=== PATIENT | female | born 1990 | race American Indian/Alaskan Native ===

== ENCOUNTER 2020-03-01 14:27 | Outpatient (CLI) | payer OTHER ==
[2020-03-01 15:06] VITALS: BP 101/60
--- NOTE | 2020-03-02 07:25 | Ultrasound Report ---
Limited OB Ultrasound HISTORY: HEMANT. TECHNIQUE: Grayscale and color imaging performed. COMPARISON: None FINDINGS: Limited exam shows a single intrauterine gestation with cephalic presentation, heart rate o f 130 bpm, and HEMANT of 18.7 cm. IMPRESSION: Limited OB exam as above. Signer Name: Jameson Benitez MD Signed: 03/01/2020 4:37 PM Workstation Name: [id number]
== END 2020-03-01 16:42 | disposition home or self-care (01) ==
LOC: TRG 14:27 → APU 14:27 → TRG 16:42
PROVIDERS: ATTEND Obstetrics & Gynecology
DX: O42.912 Preterm premature rupture of membranes, unspecified as to length of time between rupture and onset of labor, second trimester (principal); Z3A.27 27 weeks gestation of pregnancy
CPT/HCPCS: 59025; 76815

== ENCOUNTER 2020-05-19 05:50 | Inpatient (IN) | payer OTHER ==
[2020-05-19] MEDS ORDERED: MINERAL OIL 30 ML ORAL LIQD PO PRN (06:30)
[2020-05-19] MEDS ORDERED: ONDANSETRON 4 MG/2 ML INJ IV PRN ×2 (06:30→11:40)
[2020-05-19] MEDS ORDERED: ePHEDrine SULFATE 50 MG/1 ML INJ IV PRN (06:30)
[2020-05-19] MEDS ORDERED: AMPICILLIN/NS 2 GM/100 ML 2 GM/100 ML BAG IV ONE (06:30)
[2020-05-19] MEDS ORDERED: LACTATED RINGERS 1,000 ML IV SCH (06:30)
[2020-05-19] MEDS ORDERED: BUTORPHANOL 2 MG/1 ML INJ IV PRN ×3 (06:30→07:35)
[2020-05-19] MEDS ORDERED: fentaNYL 100 MCG/2 ML INJ IV PRN (06:30)
[2020-05-19] MEDS ORDERED: TERBUTALINE 1 MG/1 ML INJ SUB-Q PRN (06:30)
[2020-05-19] MEDS ORDERED: LIDOCAINE (2%) 20 MG/1 ML VIAL 20 ML MDV INFILTRATI ONE (06:30)
[2020-05-19 07:03] LABS: Hematocrit 33.4 % (30.3-42.9); Mean Corpuscular HGB Conc 33 % (30-34); Mean Corpuscular Volume 89 fl (79-97); Red Blood Count 3.73 M/mm3 (3.65-5.03); Red Cell Distribution Width 14.6 % (13.2-15.2)
[2020-05-19 07:05] LABS: Platelet Count 210 K/mm3 (140-440)
--- NOTE | 2020-05-19 08:08 | History and Physical Report ---
History of Present Illness Date of examination: 05/19/20 Date of admission: 05/19/20 07:32 Chief complaint: Contractions, leaking fluid History of present illness: 29 year old at 38w6d presented to triage with contractions and leaking fluid. Patient denies vaginal bleeding and endorses active movement. Patient is GBS positive and rubella non-immune (desires MMR vaccine ). Patient was treated (negative test of cure 11/19/19) for BV in the second trimester. She reports an allergy to aspirin. Patient has received care with [facility]'s OBGYN. Past History Past Medical History: no pertinent history Past Surgical History: no surgical history Family/Genetic History: diabetes (grandmother), stroke (grandmother) Social history: no significant social history - Obstetrical History Expected Date of Delivery: 05/27/20 Actual Gestation: 38 Week(s) 6 Day(s) : 4 Para: 1 Hx # Term Pregnancies: 1 Number of Pregnancies: 0 Spontaneous Abortions: 2 Number of Living Children: 1 Medications and Allergies Allergies Allergy/AdvReac Type Severity Reaction Status Date / Time aspirin Allergy Swelling Verified 05/12/20 23:53 pollen extracts Allergy Itching Verified 05/12/20 23:53 Home Medications Medication Instructions Recorded Confirmed Last Taken Type Vit-Fe Fumar-FA [ 1 tab PO DAILY 05/12/20 05/12/20 1 Day Ago History Vitamin] ~05/11/20 Active Meds: Active Medications Butorphanol Tartrate (Butorphanol 2 Mg/1 Ml Inj) 2 mg IV Q2H PRN PRN Reason: Pain , Severe (7-10) Last Admin: 05/19/20 07:44 Dose: 2 mg Documented by: Butorphanol Tartrate (Butorphanol 2 Mg/1 Ml Inj) 1 mg IV Q2H PRN PRN Reason: Pain, Moderate(4-6) LABOR PAIN Ephedrine Sulfate (Ephedrine Sulfate 50 Mg/1 Ml Inj) 10 mg IV Q2M PRN PRN Reason: Hypotension Fentanyl (Fentanyl 100 Mcg/2 Ml Inj) 100 mcg IV Q2H PRN PRN Reason: Pain,Severe (7-10) LABOR PAIN Lactated Ringer's (Lactated Ringers) 1,000 mls @ 125 mls/hr IV DIRECT PAULINO Oxytocin/Sodium Chloride (Pitocin/Ns 30 Unit/500ml) 30 units in 500 mls @ 40 mls/hr IV TITR PAULINO; Protocol Mineral Oil (Mineral Oil 30 Ml Oral Liqd) 30 ml PO QHS PRN PRN Reason: Constipation Ondansetron HCl (Ondansetron 4 Mg/2 Ml Inj) 4 mg IV Q8H PRN PRN Reason: Nausea And Vomiting Terbutaline Sulfate (Terbutaline 1 Mg/1 Ml Inj) 0.25 mg SUB-Q ONCE PRN PRN Reason: Hyperstimulation/Hypertonicity Review of Systems All systems: negative Respiratory: no shortness of breath Genitourinary: leakage of fluid, contractions, no vaginal bleeding, no genital sores Neurological: no headaches - Vital Signs Vital signs: Vital Signs Temp Pulse Resp BP Pulse Ox 98.8 F 63 18 112/72 100 05/19/20 06:10 05/19/20 06:10 05/19/20 06:10 05/19/20 06:10 05/19/20 06:10 Temp Pulse Resp BP Pulse Ox 98.8 F 75 18 112/59 99 05/19/20 06:10 05/19/20 07:42 05/19/20 06:10 05/19/20 07:42 05/19/20 06:50 - Physical Exam Breasts: Positive: deferred Abdomen: Positive: normal appearance, soft. Negative: distention, tenderness, rigidity Vagina: Positive: discharge (loss of amniotic fluid, ROM confirmed in triage) Uterus: Positive: enlarged (consistent with ) Extremities: Positive: normal - Obstetrical FHR: category 2 (occasional late decelerations after Stadol administration) Uterine Contraction Monitor Mode: External Cervical Dilatation: 3 (per RN) Cervical Effacement Percentage: 60 station: -3 Uterine Contraction Frequency (min): 5 Uterine Contraction Duration: 45 Uterine Contraction Pattern: Irregular Uterine Contraction Intensity: Moderate (mild/moderate) Results Result Diagrams: 05/19/20 06:45 All other labs normal. Assessment and Plan A: IUP at 38w6d Admitted in labor, ctx q5, SVE 3/60/-3 per RN SROM confirmed in triage at 0600 Cat 2 FHTs GBS+ VSS P: Admit to L&D Closely monitor clinical status Stadol given for pain, planning epidural Ampicillin for GBS+ Augmentation with pitocin PRN Anticipate
--- NOTE | 2020-05-19 09:51 | Anesthesia Consultation ---
Anesthesia Consult and Med Hx Date of service: 05/19/20 - Airway Anesthetic Teeth Evaluation: Good ROM Head & Neck: Adequate Mental/Hyoid Distance: Adequate Mallampati Class: Class II Intubation Access Assessment: Probably Good - Pulmonary Exam CTA: Yes - Cardiac Exam Cardiac Exam: RRR - Pre-Operative Health Status ASA Pre-Surgery Classification: ASA2 Proposed Anesthetic Plan: Epidural, Spinal - Pulmonary Hx Smoking: No Hx Asthma: Yes (last attack 6 months ago) Hx Sleep Apnea: No - Cardiovascular System Hx Hypertension: No Hx Heart Attack/AMI: No Hx Angina: No - Central Nervous System Hx Seizures: No Hx Psychiatric Problems: Yes (depression no meds) - Gastrointestinal Hx Gastroesophageal Reflux Disease: No - Endocrine Hx Renal Disease: No Hx Insulin Dependent Diabetes: No Hx Non-Insulin Dependent Diabetes: No Hx Hypothyroidism: No Hx Hyperthyroidism: No - Hematic Hx Anemia: No Hx Sickle Cell Disease: No - Other Systems Hx Alcohol Use: No
--- NOTE | 2020-05-19 09:53 | Progress Note ---
Labor Epidural - Labor Epidural Start Time: 09:35 Stop Time: 09:50 Performed by:: RADHA GUEVARA Procedure: Patient is requesting combined spinal epidural for labor and pain. H&P, labs were reviewed. All questions and concerns were answered. Informed consent was obtained. Timeout performed. Patient in sitting position on side of bed. Sterile prep and drape was performed. 3 mL 1% lidocaine skin wheal at L [3]-L [4]. 18-gauge Touhy epidural needle advanced to [id number] using air technique, [5cm]. 27-gauge spinal needle advanced, positive free-flowing CSF. Spinal dose of [Marcaine 3.375mg]. Epidural catheter advanced to [10] cm. [-] Aspiration, [-] test dose. Sterile dressing applied. Patient tolerated procedure well.
[2020-05-19] MEDS ORDERED: NalbUPHINE 10 MG/1 ML INJ IV PRN (10:00)
[2020-05-19] MEDS ORDERED: diphenhydrAMINE 50 MG/ML VIAL IV PRN (10:00)
[2020-05-19] MEDS ORDERED: fentaNYL-BUPIV 2 MCG/ML-0.125% 200 MCG/100 ML BAG EPIDURAL SCH (10:00)
[2020-05-19] MEDS ORDERED: NALOXONE 2 MG/2 ML INJ IV PRN (10:00)
[2020-05-19] MEDS: OXYTOCIN DRIP 30 UNITS/500 ML BAG IV SCH ×2 (10:42→11:53)
[2020-05-19] MEDS ORDERED: miSOPROStol 200 MCG TAB PR ONE (11:00)
--- NOTE | 2020-05-19 11:09 | Procedure Note ---
OB Delivery Note - Delivery Date of Delivery: 05/19/20 - Vaginal Delivery presentation: vertex Delivery position: OA Route of delivery: Indicators for instrumentation: nonreassuring FHR tracing Delivery placenta: expressed Delivery cord: nuchal cord (x1 easily reducible ) Episiotomy: none Delivery laceration: none Anesthesia: epidural Delivery comments: Called to bedside to assess NRFHT, complete dilation, +2 station Risks,Benefits, Alternatives, and indications for Vacuum Assisted Vaginal Delivery vs Delivery reviewed Verbal consent for VAVD obtained. Bladder drained-300cc head positioning confirmed, Vacuum applied to adequate pressure, gentle traction applied for the duration of 6 contractions with release between each contraction. 3 pop-offs with last three pulls. Vacuum discarded. now with head at introitus-NEHAL position. Minimal movement with maternal effort-Shoulder dystocia called. Bed lowered, Isadora and Alarcon maneuver applied, followed by delivery of the posterior arm. Last maneuver resulted in delivery of viable male infant. Cord was clamped and cut, was handed to pediatricians in attendance. Inspection of vagina/perineum negative for laceration. 3rd stage of labor facilitated by JULIO Fermin-please see her note for details and EBL
[2020-05-19] MEDS ORDERED: miSOPROStol 200 MCG TAB ONE (11:23)
[2020-05-19] MEDS ORDERED: MAGNESIUM HYDROXIDE (MOM) ORAL LIQD UDC PO PRN (11:40)
[2020-05-19] MEDS ORDERED: diphenhydrAMINE 25 MG CAP PO PRN (11:40)
[2020-05-19] MEDS ORDERED: PROMETHAZINE 25 MG RECT SUPP PR PRN (11:40)
[2020-05-19] MEDS ORDERED: WITCH HAZEL/ GLYCERIN PAD TP PRN (11:40)
[2020-05-19] MEDS ORDERED: LANOLIN/ZINC/DIMETHICONE (LANSINOH) 7 GM TP PRN (11:40)
[2020-05-19] MEDS ORDERED: PROMETHAZINE 25 MG TAB PO PRN (11:40)
--- NOTE | 2020-05-19 11:45 | Event Note ---
Date: 05/19/20 SVE at 0940 c/c/0, NRFHTs so decision was made to proceed with pushing. Initially variable decelerations noted, call placed to MD manager occupational Coco OCHOA to standby. bradycardia noted, not recovering after contractions. Call placed to Ko OCHOA. Maternal position changed to hands & knees, pushing to +2. ISE placed. Ko OCHOA arrived, variable decelerations and bradycardia continued, MD proceeded with VAVD. See Coco delivery note. 3rd stage of management assumed by this CNM. Pitocin infusion started. Venous and arterial cord gases collected. No delivery of placenta with gentle traction, manual removal of retained placenta from lower uterine segment after 30 minutes. Placenta grossly intact with 3vc; velamentous cord insertion noted. Large blood clot expressed and slow trickle of vaginal bleeding noted. 600mcg cytotec VA placed. FF-1 and midline. EBL 300mL. Perineum intact.
[2020-05-19] MEDS: IBUPROFEN 600 MG TAB PO SCH ×2 (13:13→18:56)
[2020-05-19] MEDS ORDERED: oxyCODONE /ACETAMINOPHEN 5-325MG TAB PO SCH (17:00)
--- NOTE | 2020-05-19 18:30 | Post Anesthesia Evaluation ---
- Post Anesthesia Evaluation Patient Participated: Yes Airway Patent: Yes Stable Respiratory Function: Yes Nausea/Vomiting: No Temp > 96.8F: Yes Pain Manageable: Yes Adequeate Hydration: Yes Anesthesia Complications: No Block Receding Appropriately: Yes Patient on Ventilator: No
[2020-05-19] MEDS: ACETAMINOPHEN 500 MG TAB PO PRN (22:37)
[2020-05-20 00:06] LABS: Hematocrit 31.5 % (30.3-42.9); Hemoglobin 10.6 gm/dl (10.1-14.3)
[2020-05-20] MEDS: IBUPROFEN 600 MG TAB PO SCH ×3 (04:17→21:51)
--- NOTE | 2020-05-20 08:40 | Progress Note ---
Assessment and Plan A: PPD1 s/p VAVD Vital signs and labs stable P: Routine care Discharge to home today Subjective - Subjective Date of service: 05/20/20 Principal diagnosis: s/p VAVD Interval history: PPD1 s/p VAVD Patient reports: appetite normal, voiding normally, pain well controlled, ambulating normally : doing well Objective - Vital Signs Latest vital signs: Vital Signs Temp Pulse Resp BP BP Pulse Ox 05/20/20 08:14 98.2 F 78 18 108/69 05/20/20 00:00 98.2 F 88 18 112/62 98 05/19/20 19:32 98.2 F 86 20 98/56 97 05/19/20 16:40 98.6 F 71 18 107/55 99 05/19/20 13:40 98.4 F 72 20 114/69 05/19/20 12:44 98 H 99 05/19/20 12:42 69 118/74 05/19/20 12:39 72 98 05/19/20 12:34 71 99 05/19/20 12:29 78 99 05/19/20 12:27 72 118/75 05/19/20 12:24 78 99 05/19/20 12:19 76 99 05/19/20 12:14 95 H 100 05/19/20 12:12 68 117/74 05/19/20 12:09 68 99 05/19/20 12:04 71 99 05/19/20 11:59 74 99 05/19/20 11:57 68 123/73 05/19/20 11:54 69 99 05/19/20 11:49 70 98 05/19/20 11:47 75 122/79 05/19/20 11:44 81 99 05/19/20 11:39 77 99 05/19/20 11:34 79 98 05/19/20 11:29 84 99 05/19/20 11:24 82 99 05/19/20 11:21 97.8 F 05/19/20 11:19 82 97 05/19/20 11:14 83 99 05/19/20 11:09 78 100 05/19/20 11:04 78 100 05/19/20 10:59 95 H 100 05/19/20 10:58 90 05/19/20 10:53 72 100 05/19/20 10:48 63 95 05/19/20 10:42 93 H 76 L 05/19/20 10:37 85 100 05/19/20 10:32 86 100 05/19/20 10:27 107 H 94 05/19/20 10:22 70 100 05/19/20 10:17 108 H 100 05/19/20 10:12 95 H 100 05/19/20 10:07 69 84 05/19/20 10:04 100 H 129/74 05/19/20 10:02 115 H 132/78 100 05/19/20 09:58 93 H 107/68 05/19/20 09:57 96 H 100 05/19/20 09:52 62 98/57 100 05/19/20 09:50 60 99/56 05/19/20 09:47 68 100 05/19/20 09:42 73 100 05/19/20 09:37 85 100 05/19/20 09:36 91 H 77 L 05/19/20 09:32 73 100 05/19/20 09:27 82 100 05/19/20 09:22 65 100 05/19/20 09:17 67 100 05/19/20 09:12 72 100 05/19/20 09:07 70 100 05/19/20 09:02 85 98 05/19/20 08:57 74 99 05/19/20 08:52 73 98 05/19/20 08:47 71 99 05/19/20 08:42 74 97 Intake and Output 05/19/20 05/20/20 05/20/20 23:59 07:59 15:59 Intake Total 240 Output Total 1300 600 Balance -1060 -600 Intake: Oral 240 Output: Urine 1300 600 Void 1300 600 Other: Total, Intake Amount 240 Total, Output Amount 600 600 - Exam Abdomen: Present: soft. Absent: distention Uterus: Present: firm, fundal height below umbilicus. Absent: bogginess Extremities: Present: normal - Labs Labs: Abnormal lab results 05/19/20 05/19/20 Range/Units 10:59 11:09 ABG pH 7.249 L 7.200 L (7.320-7.450) POC ABG pCO2 54.0 H (32.0-48.0) mmHg POC ABG pO2 30.3 L 18.4 L (83-108) mmHg ABG Oxyhemoglobin 67.9 L 29.9 L (94-98) ABG Sodium 132.9 L 130.7 L (136.0-145.0) mmol/L ABG Potassium 5.0 H 4.7 H (3.40-4.50) mmol/L Carboxyhemoglobin 0.4 L (0.5-1.5) Arterial Blood Ionized Calcium 5.8 H 5.9 H (4.6-5.3) mg/dL
--- NOTE | 2020-05-20 08:42 | Discharge Summary ---
Providers - Providers Date of Admission: 05/19/20 07:32 Date of discharge: 05/20/20 Attending physician: BELEN TERRY Primary care physician: BELEN TERRY Hospitalization Reason for admission: active labor, rupture of membranes, IUP at term Delivery: vacuum extraction Episiotomy: none Laceration: none Other procedures: none complications: none Discharge diagnosis: IUP at term delivered Condition at discharge: Good Disposition: DC-01 TO HOME OR SELFCARE Plan - Discharge Medications Prescriptions: Ibuprofen [Motrin] 600 mg PO Q6H PRN #60 tablet PRN Reason: Pain - Provider Discharge Summary Activity: routine, no sex for 6 weeks, no heavy lifting 4 weeks, no strenuous exercise Diet: routine Instructions: routine Additional instructions: [] Smoking cessation referral if applicable(refer to patient education folder for contact #) [] Refer to [facility]'s [facility] Center Booklet Call your doctor immediately for: * Fever > 100.5 * Heavy vaginal bleeding ( >1 pad per hour) * Severe persistent headache * Shortness of breath * Reddened, hot, painful area to leg or breast * Drainage or odor from incision. * Keep incision clean and dry at all times and follow doctor's instructions regarding bathing/showering - Follow up plan Follow up: VILMA NAVARRO MD [Staff Physician] - 14 Days (Please call office to schedule appointment in 2-4 weeks.)
[2020-05-20] MEDS: ACETAMINOPHEN 500 MG TAB PO PRN (17:25)
[2020-05-21] MEDS: ACETAMINOPHEN 500 MG TAB PO PRN (02:29)
[2020-05-21] MEDS: IBUPROFEN 600 MG TAB PO SCH ×2 (05:18)
[2020-05-21 12:05] VITALS: BP 115/73
== END 2020-05-21 12:40 | disposition home or self-care (01) | DRG 775 ==
LOC: TRG 05:50 → APU 05:52 → TRG 07:30 → LD 07:32 → OB 13:56
PROVIDERS: ADMIT Obstetrics & Gynecology; ATTEND Obstetrics & Gynecology
PROC: 3E0R3BZ Introduction of Anesthetic Agent into Spinal Canal, Percutaneous Approach (ICD-10-PCS; principal; 2020-05-19)
PROC: 10D07Z6 Extraction of Products of Conception, Vacuum, Via Natural or Artificial Opening (ICD-10-PCS; 2020-05-19)
PROC: 00HU33Z Insertion of Infusion Device into Spinal Canal, Percutaneous Approach (ICD-10-PCS; 2020-05-19)
PROC: 4A033R1 Measurement of Arterial Saturation, Peripheral, Percutaneous Approach (ICD-10-PCS; 2020-05-19)
DX: O76 Abnormality in fetal heart rate and rhythm complicating labor and delivery (principal); O99.824 Streptococcus B carrier state complicating childbirth; O99.344 Other mental disorders complicating childbirth; B95.1 Streptococcus, group B, as the cause of diseases classified elsewhere; F32.9 Major depressive disorder, single episode, unspecified; Z20.828 Contact with and (suspected) exposure to other viral communicable diseases; Z37.0 Single live birth; Z3A.38 38 weeks gestation of pregnancy; Z88.8 Allergy status to other drugs, medicaments and biological substances; Z83.3 Family history of diabetes mellitus; Z82.3 Family history of stroke
CPT/HCPCS: 36415; 82805; 85014; 85018; 85027; 86592; 86850; 86900; 86901; G0378; J0290; J0595; J2590; U0003